=== PATIENT | female | born 1955 | race Caucasian/White ===

== ENCOUNTER 2019-12-17 12:58 | Outpatient (CLI) | payer MEDICARE, MEDICAID, SELFPAY ==
[2019-12-17 13:38] LABS: Alanine Aminotransferase 23 U/L (4-35); Albumin Level 4.2 g/dL (3.5-5.1); Alkaline Phosphatase 96 U/L (38-126); Anion Gap 7 mmol/L (8-16); Aspartate Amino Transferase 26 U/L (14-36); Bilirubin,Total 0.7 mg/dL (0.2-1.3); Blood Urea Nitrogen 15 mg/dL (7-17); Calcium 9.3 mg/dL (8.4-10.2); Carbon Dioxide 28 mmol/L (22-30); Chloride 105 mmol/L (98-107); Cholesterol 271 mg/dL (0-200); Estimated Glomerular Filt Rate > 60; Glucose 104 mg/dL (65-105); HDL Direct 55 mg/dL; Potassium 4.2 mmol/L (3.4-5.0); Sodium 140 mmol/L (137-145); Triglycerides 183 mg/dL (<150)
[2019-12-17 13:39] LABS: Basophils Percent Auto 0.2 % (0.2-1.2); Eosinophils Absolute Auto 0.1 K/mm3 (0-0.3); Eosinophils Percent Auto 1.6 % (0-4.4); Hemoglobin 14.3 g/dL (12.0-15.0); Immature Granulocyte Absolute 0.01 K/mm3 (0.00-0.031); Immature Granulocyte Percent A 0.2 % (0-0.5); Lymphocytes Percent Auto 45.1 % (18.3-44.2); Mean Corpuscular HGB Conc 34.9 g/dl (32-36); Mean Corpuscular Hemoglobin 31.8 pg (26-34); Mean Corpuscular Volume 91.3 fl (80-100); Mean Platelet Volume 10.3 fl (7.4-10.4); Monocytes Absolute Auto 0.4 K/mm3 (0.1-0.6); Neutrophils Absolute Auto 1.9 K/mm3 (1.3-6.7); Neutrophils Percent Auto 43.9 % (45.5-73.1); Platelet Count Result 196 k/mm3 (150-375); Red Blood Count 4.49 M/mm3 (4.2-5.4); Red Cell Distribution Width 12.5 % (11.5-14.5); White Blood Count 4.4 K/mm3 (4.5-10.0)
[2019-12-17 13:49] LABS: LDL Cholesterol Direct 165 mg/dL
[2019-12-17 14:03] LABS: Vitamin D 25 Hydroxy 32.9 ng/mL
== END 2019-12-17 12:59 | disposition home or self-care (01) ==
PROVIDERS: PCP Family Medicine; Visit Provider Nurse Practitioner
DX: E78.5 Hyperlipidemia, unspecified (principal); E55.9 Vitamin D deficiency, unspecified; I10 Essential (primary) hypertension; E53.8 Deficiency of other specified B group vitamins; E03.9 Hypothyroidism, unspecified
CPT/HCPCS: 36415; 80053; 80061; 82306; 82607; 84443; 85025

== ENCOUNTER 2020-02-19 09:08 | Outpatient (CLI) | payer MEDICARE, MEDICAID, SELFPAY ==
--- NOTE | ~2020-02-19 | CT_ITS ---
EXAMINATION: CT sinus wo con DATE: 02/19/2020 09:43 INDICATION: Chronic sinusitis TECHNIQUE: Computed tomography (CT) of the paranasal sinuses was performed without intravenous contra st. The dose-length product (DLP) was 201.93 mGy-cm. Iterative reconstruction was used. COMPARISON: None FINDINGS: There is normal development and pneumatization of the paranasal sinuses. There is mild righ tward deviation of the nasal septum. There is minimal mucosal thickening in the left sphenoid and max illary sinuses. The communication between the left sphenoid sinus and posterior ethmoidal air cells i s occluded. The frontal, right sphenoid, and ethmoid sinuses are clear. The bilateral ostiomeatal com plexes are patent. Visualized soft tissues are unremarkable. The facial bones are unremarkable. IMPRESSION: 1. Mild sinusitis as detailed above. Reviewed, dictated and finalized at location A. 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
== END 2020-02-19 09:09 | disposition home or self-care (01) ==
PROVIDERS: PCP Family Medicine; Visit Provider Otolaryngology
DX: J32.9 Chronic sinusitis, unspecified (principal)
CPT/HCPCS: 70486

== ENCOUNTER 2020-03-24 11:00 | Outpatient (RCR) | payer MEDICARE, MEDICAID, SELFPAY ==
--- NOTE | 2020-03-08 13:47 | PTOPEVAL ---
PHYSICAL THERAPY EVALUATION AND PLAN OF CARE 03-08-20 Thank you for referring Twila Guerrero to [facility].? She is scheduled to be seen for therapy? 2 x/week for 3 weeks. Please review, sign, date and return this plan of care WESLY. I agree with and certify that the following plan of care is medically necessary. 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 Respiratory History Hx Asthma Yes Hx Other Respiratory Disorders Yes: ear & sinus infections- 3 -4 in past yr Gastrointestinal History Hx Gastroesophageal Reflux Disease Yes: med Musculoskeletal History Hx Back Pain Yes: chronic neck and back pain Hx Other Musculoskeletal Disorders Yes: L knee pain/torn meniscus ;L elbow fracture/casted;L sh pain Endocrine History Hx Hypothyroidism Yes: med HEENT History Hx Other HEENT Disorders Yes: glasses, wear all time; last eye exam ~ 1 yr ago Other History Hx Other Medical Conditions Yes: obesity, 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 Home gabapentin, exetimibe, Meds Must Be Re-entered With Each Visit. nabymatone, potachloride, amlopline, oxbutymin ER, omeprazole, cetirizine, euthyrox; Comments Additional Prior Level of Function not very active lifestyle- Comments play video games
--- NOTE | 2020-03-15 14:27 | PCPTNOTE ---
Patient called & cancelled scheduled appointment this date due to snowy weather.
--- NOTE | 2020-03-20 10:05 | PCPTNOTE ---
Patient called & cancelled scheduled appointment this date due to having to take someone to [facility] this morning.
--- NOTE | 2020-03-29 10:41 | PCPTNOTE ---
pt called and canceled today's reeval due to bad weather;
--- NOTE | 2020-04-03 12:01 | PCPTNOTE ---
pt canceled due to bad weather;
--- NOTE | 2020-04-05 10:46 | PCPTNOTE ---
Patient called & cancelled today's and the rest of her scheduled appointment this date due to the Dr stated that's she has sinusitis, and the therapy isn't going to help at this time.
--- NOTE | 2020-04-05 14:48 | PCPTNOTE ---
PHYSICAL THERAPY DISCHARGE 04-05-20 Attending Provider: Gaudencio Garcia MD Patient:Twila Guerrero Date of :1955 Ms. Real Guerrero called today and canceled her PT, stating dr told her to stop PT due to sinus issues; therefore she will be discharged at this time. Twila has received 3 PT sessions, for the diagnosis of dizziness. She called/canceled 3 appointments. The goals were not assessed. Thank you for referring this patient to [facility]. Please review, sign, date and return this discharge summary WESLY. I have been updated about the patient's current status and I agree with discharge from the above service at this time. Referring Physician Date
== END 2020-04-06 07:37 | disposition home or self-care (01) ==
LOC: ANHPT 11:00
PROVIDERS: PCP Family Medicine; Visit Provider Otolaryngology
DX: R42 Dizziness and giddiness (principal)
CPT/HCPCS: 97110; 97162

== ENCOUNTER 2020-05-11 08:30 | Outpatient (CLI) | payer MEDICARE, MEDICAID, SELFPAY ==
--- NOTE | ~2020-05-11 | NM_ITS ---
EXAMINATION: NM ken stress w perfusion DATE: 05/11/2020 12:31 INDICATION: Shortness of breath TECHNIQUE: Rest images were obtained following intravenous administration of 10.2 mCi Tc99m tetrofosm in (Myoview). The patient was infused intravenously with Lexiscan (Regadenoson). Then, 31.8 mCi Tc99m tetrofosmin (Myoview) was administered intravenously, and stress images were obtained. Data was kasey nstructed into short axis and horizontal and vertical long axis SPECT images. Gated SPECT images were also obtained. COMPARISON: None. FINDINGS: Moderate-sized mild to moderate severity nonreversible perfusion defect consistent with inf arct involving the anterior apical, mid anteroseptal and mid anterior segments. There is normal left ventricular chamber size, wall motion and ejection fraction. Left ventricular ejection fraction moe sures 67%. IMPRESSION: 1. Moderate-sized, mild to moderate severity nonreversible infarct at the anterior apical, mid addy septal and mid anterior segments. No reversible ischemia. 2. Left ventricular ejection fraction measuring 67%. Reviewed, dictated and finalized at location A. IMPRESSION: 1. Moderate-sized, mild to moderate severity nonreversible infarct at the anter ior apical, mid anteroseptal and mid anterior segments. No reversible ischemia. 2. Left ventricular ejection fraction measuring 67%.
--- NOTE | 2020-05-11 08:38 | EST_ITS ---
Patient Info Name: Twila Guerrero Age: 65 years : 1955 Gender: Female Ht: 64 in Wt: 255 lbs BSA: 2.35 m2 Exam Date: 05/11/2020 10:12 AM Exam Location: [facility] Patient Status: Outpatient Admit Date: 05/11/2020 Staff Ordering Physician: Leanna Carroll NP Attending Provider: Madeline Bailey MD Exercise Technologist: Cleo Reis RDCS Exercise Physician: Zachary St DO Exam Type: CA stress ken w NM Study Info Indications R06.02 - Shortness of breath A regadenoson stress test was performed. Summary 1. 1. Inconclusive lexiscan stress test for ischemic ST changes due to baseline LBBB. 2. 2. Stable hemodynamics throughout the test. 3. 3. Nuclear scan to follow and will be reported separately. Please correlate with it. 4. 4. Patient informed of the above results. Protocol: Lexiscan Stress ECG Details Stage: REST Duration (min): 11 min : 43 sec HR (bpm): 61 SBP (mmHg): 131 DBP (mmHg): 60 Stage: REST Duration (min): 14 min : 29 sec HR (bpm): 66 SBP (mmHg): 131 DBP (mmHg): 60 Stage: STAGE 1 Duration (min): 0 min : 59 sec HR (bpm): 80 SBP (mmHg): 122 DBP (mmHg): 41 Stage: RECOVERY Duration (min): 1 min : 0 sec HR (bpm): 78 SBP (mmHg): 105 DBP (mmHg): 46 Stage: RECOVERY Duration (min): 2 min : 0 sec HR (bpm): 71 SBP (mmHg): 105 DBP (mmHg): 46 Stage: RECOVERY Duration (min): 3 min : 0 sec HR (bpm): 72 SBP (mmHg): 110 DBP (mmHg): 50 Stage: RECOVERY Duration (min): 4 min : 0 sec HR (bpm): 74 SBP (mmHg): 110 DBP (mmHg): 50 Stage: RECOVERY Duration (min): 5 min : 0 sec HR (bpm): 73 SBP (mmHg): 123 DBP (mmHg): 54 Stage: RECOVERY Duration (min): 6 min : 0 sec HR (bpm): 76 SBP (mmHg): 123 DBP (mmHg): 54 Stage: RECOVERY Duration (min): 7 min : 0 sec HR (bpm): 71 SBP (mmHg): 123 DBP (mmHg): 54 Stage: RECOVERY Duration (min): 7 min : 22 sec HR (bpm): 71 SBP (mmHg): 122 DBP (mmHg): 66 Rest HR: 66 bpm Peak HR: 88 bpm Rest Sys BP: 131 mmHg Peak Sys BP: 123 mmHg Max Pred HR: 153 bpm % Max Pred HR: 58 % Target HR: 130 bpm Max RPP: 10,824 bpm*mmHg Termination Reason: Completed protocol Cardiac Symptoms: Shortness of breath Total Time: 1 min : 0 sec Rest Cronin BP: 60 mmHg Peak Cronin BP: 54 mmHg Total Dose: 0.4 mg Resting ECG Sinus rhythm, LBBB. Stress ECG No ST changes. Arrhythmias None. Report Signatures
== END 2020-05-11 08:31 | disposition home or self-care (01) ==
LOC: ANHCARD 08:31
PROVIDERS: PCP Family Medicine; Visit Provider Family Medicine
DX: R06.02 Shortness of breath (principal); I44.7 Left bundle-branch block, unspecified; R94.39 Abnormal result of other cardiovascular function study
CPT/HCPCS: 78452; 93017; A9502; J2785

== ENCOUNTER 2020-05-22 07:21 | Outpatient (CLI) | payer MEDICARE, MEDICAID, SELFPAY ==
[2020-05-22 08:24] LABS: Basophils Percent Auto 0.4 % (0.2-1.2); Eosinophils Absolute Auto 0.1 K/mm3 (0-0.3); Eosinophils Percent Auto 2.6 % (0-4.4); Hematocrit 41.4 % (37.0-47.0); Hemoglobin 13.9 g/dL (12.0-15.0); Immature Granulocyte Absolute 0.01 K/mm3 (0.00-0.031); Immature Granulocyte Percent A 0.2 % (0-0.5); Lymphocytes Absolute Auto 2.05 K/mm3 (0.9-3.2); Lymphocytes Percent Auto 45.3 % (18.3-44.2); Mean Corpuscular HGB Conc 33.6 g/dl (32-36); Mean Corpuscular Volume 92.2 fl (80-100); Mean Platelet Volume 10.1 fl (7.4-10.4); Monocytes Absolute Auto 0.4 K/mm3 (0.1-0.6); Monocytes Percent Auto 8.2 % (2.6-8.5); Neutrophils Percent Auto 43.3 % (45.5-73.1); Platelet Count Result 231 k/mm3 (150-375); Red Blood Count 4.49 M/mm3 (4.2-5.4); Red Cell Distribution Width 12.5 % (11.5-14.5); White Blood Count 4.5 K/mm3 (4.5-10.0)
[2020-05-22 08:35] LABS: Alanine Aminotransferase 18 U/L (4-35); Albumin Level 4.4 g/dL (3.5-5.1); Alkaline Phosphatase 82 U/L (38-126); Anion Gap 4 mmol/L (8-16); Aspartate Amino Transferase 24 U/L (14-36); Bilirubin,Total 0.3 mg/dL (0.2-1.3); Blood Urea Nitrogen 12 mg/dL (7-17); Calcium 8.9 mg/dL (8.4-10.2); Carbon Dioxide 32 mmol/L (22-30); Chloride 104 mmol/L (98-107); Cholesterol 221 mg/dL (0-200); Estimated Glomerular Filt Rate > 60; Glucose 109 mg/dL (65-105); HDL Direct 58 mg/dL; Potassium 4.2 mmol/L (3.4-5.0); Sodium 140 mmol/L (137-145); Triglycerides 186 mg/dL (<150)
[2020-05-22 08:46] LABS: LDL Cholesterol Direct 112 mg/dL
[2020-05-22 09:20] LABS: Thyroid Stimulating Hormone Reflex 0.558 uIU/mL (0.465-4.68)
== END 2020-05-22 07:22 | disposition home or self-care (01) ==
PROVIDERS: PCP Family Medicine; Visit Provider Nurse Practitioner
DX: I10 Essential (primary) hypertension (principal); E78.5 Hyperlipidemia, unspecified; E03.9 Hypothyroidism, unspecified
CPT/HCPCS: 36415; 80053; 80061; 84443; 85025

== ENCOUNTER 2020-05-31 06:44 | Emergency (ER) | payer MEDICARE, MEDICAID, SELFPAY ==
--- NOTE | ~2020-05-31 | XR_ITS ---
EXAMINATION: XR foot RT min 3V EXAM DATE: 05/31/2020 07:21 INDICATION: Initial encounter following injury, with pain of the right foot, 1st toe. TECHNIQUE: Right foot dorsoplantar, lateral and oblique projections obtained and reviewed. There is no prior study for comparison. FINDINGS: Right metatarsal bones unremarkable. Small inferior calcaneal spur. There are no acute fr actures or dislocations identified. There is no subcutaneous gas. The soft tissue is unremarkable. There are no radiopaque foreign bodies. IMPRESSION: No acute osseous findings. Reviewed, dictated and finalized at location A. IMPRESSION: No acute osseous findings.
[2020-05-31 07:11] VITALS: BP 124/70; PULSE 63; RESP 20; TEMP 36.7; O2SAT 97
--- NOTE | 2020-05-31 07:12 | ED.LOWEXIN ---
HPI - Extremity Injury (Lower) General Chief Complaint: Extremity Injury, Lower Stated Complaint: fall Time Seen by Provider: 05/31/20 07:02 Source: RN notes reviewed History of Present Illness HPI Narrative: Patient presents to emergency department from home for right toe pain. Patient states last night approximately 830 she fell on her foot became wrapped up and a blanket patient states she bent her toe at that time and had pain she denies any other trauma or injury denies falling to the ground or striking her head patient states she took Tylenol prior to arrival for the pain denies any numbness or tingling of the toe Related Data Home Medications Medication Instructions Recorded Confirmed ascorbate calcium (vitamin C) 500 500 mg PO DAILY 02/03/20 05/29/20 mg tablet biotin 10,000 mcg capsule mcg PO 02/03/20 05/29/20 cholecalciferol (vitamin D3) 10 10 mcg PO DAILY 02/03/20 05/29/20 mcg (400 unit) capsule coenzyme Q10 200 mg/gram oral mg PO 02/03/20 05/29/20 powder multivitamin,gd-[id number]-atnpspbp 1 tablet PO DAILY 02/03/20 05/29/20 omega-3 fatty acids 1,000 mg 1,000 mg PO DAILY 02/03/20 05/29/20 capsule loratadine 10 mg tablet 10 mg PO DAILY 04/24/20 05/29/20 Allergies Allergy/AdvReac Type Severity Reaction Status Date / Time codeine Allergy Severe Swelling Verified 05/31/20 07:35 of Lip/Tongue/Throat morphine Allergy Severe Swelling Verified 05/31/20 07:35 of Lip/Tongue/Throat Sulfa (Sulfonamide Allergy Severe Swelling Verified 05/29/20 08:25 Antibiotics) of Lip/Tongue/Throat acetaminophen Allergy Swelling Verified 05/31/20 07:35 [From Darvocet-N] of Lip/Tongue/Throat hydrocodone [From [place]] Allergy Swelling Verified 05/31/20 07:35 of Lip/Tongue/Throat oxycodone [From Percocet] Allergy Swelling Verified 05/31/20 07:35 of Lip/Tongue/Throat propoxyphene Allergy Swelling Verified 05/31/20 07:35 [From Darvocet-N] of Lip/Tongue/Throat NARCOTICS Allergy Severe SOB, rash Uncoded 05/31/20 07:35 Review of Systems Review of Systems: Narrative: Gen.: Denies fevers or chills Musculoskeletal: See HPI Neuro: Denies numbness, tingling, weakness Skin: Denies rash Endo: Denies DM PMFSH Past Medical History Medical History Age-related osteoporosis without current pathological fracture Asthma Depression Essential (primary) hypertension Fibromyalgia GERD (gastroesophageal reflux disease) History of blood clots Hypothyroidism (acquired) Sinusitis Unspecified osteoarthritis, unspecified site Surgical History Surgical History History of hysterectomy History of surgery on arm Family History Family History Mother Patient's mother is in good health Family history of arthritis Father Family history of cardiovascular disease Grandparent Family history of primary malignant neoplasm of liver Family history of congestive heart failure Other Family history of malignant neoplasm Social History Social History Smoking status: Never smoker Alcohol intake: current Gender identity (if verbalized by the patient): Female Exam Narrative: Exam Narrative: APPEARANCE: No acute distress, nontoxic, resting in bed Eyes: EOMI HEENT: Normocephalic, atraumatic, RESPIRATORY: No respiratory distress MUSCULOSKELETAl: The right first toe is diffusely tender to palpation mild swelling no ecchymosis no tenderness of toes 2 through 4 no tenderness to the remainder of the foot dorsalis pedis pulse 2+ neurovascular intact, no tenderness of the right ankle or knee NEURO: Awake and alert. Following commands, speech normal, no focal deficits SKIN:: Warm, dry. Normal Color no rash or lesions Course Course Emergency Course: Disc
--- NOTE | 2020-05-31 07:15 | PC.NURSE ---
Radiology at bedside
== END 2020-05-31 08:06 | disposition home or self-care (01) ==
PROVIDERS: Emergency Provider Emergency Medicine; PCP Family Medicine
DX: S93.501A Unspecified sprain of right great toe, initial encounter (principal); M81.0 Age-related osteoporosis without current pathological fracture; J45.909 Unspecified asthma, uncomplicated; I10 Essential (primary) hypertension; M79.7 Fibromyalgia; K21.9 Gastro-esophageal reflux disease without esophagitis; E03.9 Hypothyroidism, unspecified; M19.90 Unspecified osteoarthritis, unspecified site; W18.09XA Striking against other object with subsequent fall, initial encounter
CPT/HCPCS: 73630; 99283